=== PATIENT | male | born 1995 | race Caucasian/White ===

== ENCOUNTER 2019-07-03 09:43 | Emergency (ER) | payer OTHER ==
[~2019-07-03] VITALS: Ht 165.1 cm; Wt 66.4 kg
[2019-07-03 09:54] VITALS: TEMP 97.6
[2019-07-03 10:15] LABS: BASO % 0.6 % (0.0-2.0); EOS # 0.1 (0.0-0.7); GRAN # 1.9 (1.4-6.5); GRAN % 35.6 % (42.2-75.2); HEMATOCRIT 48.6 % (42.0-52.0); HEMOGLOBIN 16.9 g/dl (13.5-18.0); LYMPH # 2.7 (1.2-3.4); LYMPH % 52.1 % (20.0-51.0); MEAN CELL VOLUME 91 fl (80.0-100.0); MEAN CORPUSCULAR HEMOGLOBIN 32 pg (27.0-31.0); MEAN CORPUSCULAR HGB CONC 35 g/dl (33.0-37.0); MEAN PLATELET VOLUME 10.6 fl (7.4-10.4); MONO # 0.6 (0.1-0.6); MONO % 10.5 % (1.7-9.3); PLATELET COUNT 182 K/mm3 (130-400); RED BLOOD COUNT 5.32 M/mm3 (4.20-5.60); REDCELL DISTRIBUTION WIDTH-CV 12.7 % (11.5-14.5)
[2019-07-03] MEDS ORDERED: MIRALAX510G PO (10:25)
[2019-07-03 10:28] LABS: ALANINE AMINOTRANSFERASE 30 U/L (21-72); ALBUMIN 4.7 gm/dL (3.5-5.0); ALKALINE PHOSPHATASE 60 U/L (50-136); ANION GAP 10 mmol/L (7-16); AST,SGOT 30 U/L (15-37); BILIRUBIN,TOTAL 0.6 mg/dL (0.0-1.0); BLOOD UREA NITROGEN 7 mg/dL (9-20); CALCIUM 8.9 mg/dL (8.4-10.2); CARBON DIOXIDE 29 mmol/L (22-30); CHLORIDE 107 mmol/L (98-107); CREATININE, serum 0.81 (0.66-1.25); GLUCOSE 101 mg/dL (74-106); LIPASE 52 U/L (23-300); POTASSIUM 3.7 mmol/L (3.4-5.0); SODIUM 147 mmol/L (137-145); TOTAL PROTEIN 8.3 gm/dL (6.4-8.2)
[2019-07-03 10:29] LABS: C-REACTIVE PROTEIN < 0.5 mg/dL (0.0-0.9)
[2019-07-03 11:05] VITALS: BP 131/82; PULSE 84
== END 2019-07-03 11:31 | disposition home or self-care (01) ==
LOC: COL.ER 09:43
PROVIDERS: Emergency Medicine
DX: K64.4 Residual hemorrhoidal skin tags (principal); K64.8 Other hemorrhoids